=== PATIENT | female | born 1960 | race African-American/Black ===

== ENCOUNTER 2024-05-07 08:54 | Inpatient (IN) | payer OTHER ==
[2024-05-07] VITALS (29 sets, daily range): BP systolic 106–150; BP diastolic 63–102; PULSE 86–103; RESP 15–23; TEMP 36.6–36.7; O2SAT 92–98
[~2024-05-07] VITALS: Ht 167.6 cm; Wt 135.2 kg
[2024-05-07] MEDS: LABETALOL 5MG/ML 4ML INJ IV ONE ×2 (09:36→11:52)
[2024-05-07 09:55] LABS: BASOPHILS % 0.3 % (0.0-2.0); EOSINOPHILS % 1.1 % (0.0-5.0); HEMATOCRIT. 38.2 % (36.0-48.0); LYMPHOCYTES % 18.3 % (20.0-50.0); MEAN CORPUSCULAR HEMOGLOBIN 25.7 pg (28.0-32.0); MEAN CORPUSCULAR HGB CONC 31.3 g/dL (31.0-37.0); MEAN PLATELET VOLUME 7.7 fl (7.4-10.4); MONOCYTES % 6.3 % (2.0-8.0); PLATELET 265 x1000/uL (130-400); RED BLOOD CELL COUNT 4.66 mill/uL (4.2-5.4); RED CELL DISTRIBUTION WIDTH 14.8 % (11.6-14.6); WHITE BLOOD COUNT 7.9 x1000/uL (4.5-11.0)
[2024-05-07 10:00] LABS: CHLORIDE 101 mEq/L (98-107); POTASSIUM 3.8 mEq/L (3.5-5.1); SODIUM 140 mEq/L (136-145)
[2024-05-07 10:01] LABS: CALCIUM 9.4 mg/dL (8.7-10.4); CARBON DIOXIDE 32 mEq/L (21-32); INR 1.1; PROTHROMBIN TIME 11.3 sec (9.6-11.0)
[2024-05-07 10:06] LABS: CREATININE 1.4 mg/dL (0.6-1.0); GLUCOSE 109 mg/dL (70-105); UREA NITROGEN BLOOD 21 mg/dL (9-23)
[2024-05-07 10:12] LABS: TROPONIN I HIGH SENSITIVITY < 4 ng/L (3.0-34)
[2024-05-07 10:30] LABS: ETHANOL BLOOD < 10 mg/dL (<10)
[2024-05-07] MEDS: IOHEXOL-350 100 ML BOTTLE ONE (10:39)
[2024-05-07 11:05] LABS: CLARITY URINE CLEAR (CLEAR); COLOR URINE YELLOW (YELLOW); GLUCOSE URINE NEGATIVE (NEGATIVE); KETONES URINE NEGATIVE (NEGATIVE); LEUKOCYTE ESTERASE URINE TRACE (NEGATIVE); NITRITE URINE NEGATIVE (NEGATIVE); OCCULT BLOOD URINE NEGATIVE (NEGATIVE); PROTEIN URINE NEGATIVE (NEGATIVE); SPECIFIC GRAVITY URINE 1.025 (1.005-1.030); UROBILINOGEN URINE 0.2 E.U./dL (0.2-1.0)
[2024-05-07 11:19] LABS: SQUAMOUS EPITHELIAL CELL URINE 1+ /lpf (RARE/1+)
[2024-05-07 11:20] LABS: BACTERIA URINE TRACE; WBC URINE 0-2 /hpf (0-2)
[2024-05-07] MEDS: DEXAMETHASONE 10 MG/ML VIAL IV ONE (11:51)
[2024-05-07] MEDS: LEVETIRACETAM 1000MG PREMIX 100 ML IV ONE (11:51)
[2024-05-07 11:55] LABS: *AMPHETAMINES SCREEN URINE NEGATIVE (NEGATIVE); *BARBITURATES SCREEN URINE NEGATIVE (NEGATIVE); *BENZODIAZEPINES SCREEN URINE NEGATIVE (NEGATIVE); *COCAINE SCREEN URINE NEGATIVE (NEGATIVE)
[2024-05-07 11:56] LABS: METHADONE URINE SCREEN NEGATIVE (NEGATIVE); OPIATES URINE SCREEN PRESUMPTIVE POSITIVE (NEGATIVE)
[2024-05-07 11:57] LABS: CANNABINOID URINE SCREEN NEGATIVE (NEGATIVE); ECSTASY MDMA SCREEN URINE NEGATIVE (NEGATIVE); PHENCYCLIDINE URINE SCREEN NEGATIVE (NEGATIVE)
[2024-05-07] MEDS: NICARDIPINE 100 MG in SODIUM CHLORIDE 0.9% 60 ML IV PRN (15:44)
[2024-05-07] MEDS ORDERED: NICARDIPINE 100 MG in SODIUM CHLORIDE 0.9% 60 ML IV PRN (16:00)
[2024-05-07] MEDS ORDERED: NALOXONE HCL 0.4MG/ML VIAL IV PRN (16:45)
[2024-05-07] MEDS ORDERED: ONDANSETRON HCL 4MG/2ML INJ IV PRN (16:45)
[2024-05-07] MEDS ORDERED: ACETAMINOPHEN 650MG SUPP PR PRN (16:45)
[2024-05-07] MEDS ORDERED: IPRATROPIUM/ALBUTEROL 0.5-3(2.5)MG/3ML NEB HHN PRN (16:45)
[2024-05-07] MEDS: DEXT 5%/LACTATED RINGERS 1,000 ML IV SCH (17:34)
[2024-05-07] MEDS: PANTOPRAZOLE SODIUM 40 MG/VIAL IV SCH (17:35)
[2024-05-07] MEDS: DEXAMETHASONE 4MG/ML 1ML VIAL IV SCH (17:35)
[2024-05-07] MEDS ORDERED: DEXTROSE 50% WATER 50ML SYRINGE IV PRN (18:45)
[2024-05-07] MEDS: LEVETIRACETAM 500MG PREMIX 100 ML IV SCH (21:23)
[2024-05-07] MEDS: INSULIN LISPRO 100 UNITS/ML SUBCUT SCH (21:24)
[2024-05-07] MEDS: BLOOD SUGAR DIAGNOSTIC STRIP TEST SCH (21:25)
[2024-05-08] VITALS (72 sets, daily range): BP systolic 98–148; BP diastolic 49–122; PULSE 82–109; RESP 12–35; TEMP 35.8–36.9; O2SAT 85–100
[2024-05-08] MEDS: MORPHINE SULFATE 2 MG/ML INJ (NOT FOR IM USE) IV PRN (04:37)
[2024-05-08 06:11] LABS: CREATINE KINASE MB FRACTION < 0.5 ng/mL (0.5-3.6)
[2024-05-08 06:13] LABS: CREATINE KINASE 144 IU/L (34-145)
[2024-05-08 06:26] LABS: TROPONIN I HIGH SENSITIVITY < 4 ng/L (3.0-34)
[2024-05-08 08:45] LABS: HEMATOCRIT. 38.3 % (36.0-48.0); LYMPHOCYTES % 9.7 % (20.0-50.0); MEAN CORPUSCULAR HEMOGLOBIN 26.1 pg (28.0-32.0); MEAN CORPUSCULAR HGB CONC 31.4 g/dL (31.0-37.0); MEAN CORPUSCULAR VOLUME 83.2 fL (81.0-99.0); MEAN PLATELET VOLUME 8.1 fl (7.4-10.4); MONOCYTES % 1.3 % (2.0-8.0); PLATELET 285 x1000/uL (130-400); RED BLOOD CELL COUNT 4.61 mill/uL (4.2-5.4); WHITE BLOOD COUNT 10.2 x1000/uL (4.5-11.0)
[2024-05-08] MEDS ORDERED: CLONIDINE 0.1MG TABLET PO PRN (16:45)
[2024-05-08 16:59] LABS: CHLORIDE 105 mEq/L (98-107); POTASSIUM 4.2 mEq/L (3.5-5.1); SODIUM 141 mEq/L (136-145)
[2024-05-08 17:00] LABS: CALCIUM 9.9 mg/dL (8.7-10.4); CARBON DIOXIDE 26 mEq/L (21-32)
[2024-05-08 17:05] LABS: CREATINE KINASE MB FRACTION 1.5 ng/mL (0.5-3.6); GLUCOSE 156 mg/dL (70-105); TROPONIN I HIGH SENSITIVITY 7 ng/L (3.0-34); UREA NITROGEN BLOOD 33 mg/dL (9-23)
[2024-05-08 17:07] LABS: CREATINE KINASE 205 IU/L (34-145)
[2024-05-08 17:13] LABS: CREATININE 1.9 mg/dL (0.6-1.0)
[2024-05-08] MEDS: LOSARTAN 50 MG TABLET PO SCH (18:29)
[2024-05-08] MEDS: AMLODIPINE 10MG TABLET PO SCH (18:29)
== END 2024-05-08 19:58 | disposition short-term general hospital (02) | DRG 65 ==
LOC: ER 08:54 → EDBEDREQTM 11:29 → EDBEDREQ 11:29 → EDBEDREQSVC 11:29 → MICUNO 17:32
PROVIDERS: ADMIT Internal Medicine; ATTEND Internal Medicine
DX: I61.8 Other nontraumatic intracerebral hemorrhage (principal); G81.94 Hemiplegia, unspecified affecting left nondominant side; Z68.42 Body mass index [BMI] 45.0-49.9, adult; I10 Essential (primary) hypertension; E66.9 Obesity, unspecified; Z90.710 Acquired absence of both cervix and uterus
CPT/HCPCS: 36415; 70496; 70498; 71045; 80048; 80305; 80320; 81003; 82550; 82553; 82962; 83036; 84484; 85025; 93005; 99291; A6261; J1100; J1815; J1953; J2270; J2470; J3490; J7050; Q9967; G0480